=== PATIENT | male | born 1955 | race Caucasian/White ===

== ENCOUNTER 2017-05-04 13:16 | Emergency (ER) | payer BC, OTHER ==
[2017-05-04 13:27] VITALS: RESP 20
[2017-05-04] MEDS ORDERED: SILVER NITRATE APPLICATOR 1 APPL TP ONE ×2 (14:04→14:08)
[2017-05-04] MEDS ORDERED: OXYMETAZOLINE 30 ML NASAL SPRAY EACHNARE ONE (14:04)
[2017-05-04] MEDS ORDERED: LET GEL TOPICAL 1 EA SYR TP ONE (14:04)
--- NOTE | 2017-05-04 14:14 | EDPHY ---
H & P Smoking Status: Never smoked Time Seen by Provider: 05/04/17 13:58 HPI/ROS: CHIEF COMPLAINT: intermittent epistaxis HISTORY OF PRESENT ILLNESS: 61-year-old male no history of anticoagulant use complaining of intermittent epistaxis right-sided for the past 5 days. No dizziness no lightheadedness no nausea no vomiting. No digital trauma. No sneezing. PHYSICAL EXAM (Prior to examination, patient consented to physical exam, hands were washed and my usual and customary physical exam procedures followed) 1) GENERAL: Well-developed, well-nourished, alert and oriented. Appears to be in no acute distress. 2) HEAD: Normocephalic 3) HEENT: sclera anicteric. Right nostril active bleeding from a small polyp appearing area on the medial aspect of the anterior nostril. 4) LUNGS: Breathing comfortably. (Vicenta Nunn) Constitutional: Initial Vital Signs Temperature (C) 36.6 C 05/04/17 13:25 Heart Rate 89 05/04/17 13:25 Respiratory Rate 20 05/04/17 13:25 Blood Pressure 131/91 H 05/04/17 13:25 O2 Sat (%) 93 05/04/17 13:25 O2 Delivery Mode Room Air Allergies/Adverse Reactions: No Known Allergies Allergy (Unverified 05/04/17 13:25) Home Medications: Medication Instructions Recorded Crestor 05/04/17 Levothyroxine 05/04/17 Metformin HCl 05/04/17 MDM/Departure - MDM Procedures: Procedure: Epistaxis control. Indication: nosebleed not controlled by direct pressure. Risks, benefits, alternatives discussed with patient and consent obtained. The right nares was anesthetized with LAT. The anterior epistaxis was identified. Initial treatment with silver nitrate cautery resulted in breakthrough bleeding. Subsequently rapid rhino packing placed by myself. Following the procedure the patient was re-examined and the bleeding was well controlled. The patient tolerated the procedure well. The procedure was performed by myself. At discharge the patient's nose is hemostatic. (Vicenta Nunn) Medications Given: Discontinued Medications Oxymetazoline HCl (Afrin Nasal [place]) 2 sprays EACHNARE EDNOW ONE Stop: 05/04/17 14:05 Last Admin: 05/04/17 14:11 Dose: Not Given Silver Nitrate/Potassium Nitrate (Silver Nitrate Applicator) 1 each TP EDNOW ONE Stop: 05/04/17 14:05 Last Admin: 05/04/17 14:11 Dose: Not Given Tetracaine/Epinephrine/Lidocaine (Let Gel Topical) 2 ea TP EDNOW ONE Stop: 05/04/17 14:05 Last Admin: 05/04/17 14:11 Dose: Not Given ED Course/Re-evaluation: I did not see this patient while he was in the emergency department. However his care was discussed with the PA while the patient was in the department. I agree with treatment plan and management (Bo Peres) - Depart Disposition: Home, Routine, Self-Care Clinical Impression: Anterior epistaxis Condition: Good Instructions: Nosebleed (ED) Additional Instructions: If you develop further nosebleed place direct pressure for 20 minutes, if the bleeding does not stop return to the ER. Referrals: Ede Richardson MD [Medical Doctor] - 2-3 days, call for appt.
[2017-05-04 15:25] VITALS: BP 151/99; PULSE 78; TEMP 97.7; O2SAT 94
== END 2017-05-04 15:25 | disposition home or self-care (01) ==
PROC: 2Y41X5Z Packing of Nasal Region using Packing Material (ICD-10-PCS; principal; 2017-05-04)
DX: R04.0 Epistaxis (principal)